=== PATIENT | female | born 1985 | race Caucasian/White ===

== ENCOUNTER 2016-11-13 14:07 | Inpatient (IN) | payer OTHER ==
[~2016-11-13] VITALS: Ht 172.7 cm; Wt 82.7 kg
[2017-01-21] VITALS (41 sets, daily range): BP systolic 103–138; BP diastolic 59–84; PULSE 72–157; TEMP 97.7–98.8
[2017-01-21] MEDS ORDERED: PRENATAL MVI (01:27)
[2017-01-21 04:13] LABS: BASO # 0.1 (0.0-0.2); BASO % 0.3 % (0.0-2.0); EOS % 0.2 % (0-4.0); GRAN % 78.2 % (42.2-75.2); HEMATOCRIT 41.8 % (37.0-47.0); HEMOGLOBIN 14.5 g/dl (12.5-16.0); LYMPH # 2.5 (1.2-3.4); LYMPH % 13.9 % (20.0-51.0); MEAN CELL VOLUME 87 fl (80.0-100.0); MEAN CORPUSCULAR HEMOGLOBIN 30 pg (27.0-31.0); MEAN CORPUSCULAR HGB CONC 35 g/dl (33.0-37.0); MEAN PLATELET VOLUME 11.4 fl (7.4-10.4); MONO # 1.2 (0.1-0.6); MONO % 6.7 % (1.7-9.3); PLATELET COUNT 217 K/mm3 (130-400); RED BLOOD COUNT 4.79 M/mm3 (4.10-5.30); REDCELL DISTRIBUTION WIDTH-CV 12.6 % (11.5-14.5)
[2017-01-21] MEDS ORDERED: MOTRIN 800800 MG/TAB PO (09:39)
[2017-01-21] MEDS ORDERED: PERCOCET 325 MG1 TA2 PO (09:39)
[2017-01-22] VITALS (7 sets, daily range): BP systolic 98–116; BP diastolic 57–78; PULSE 76–135; TEMP 97.9–103.1
[2017-01-22 07:59] LABS: MEAN CELL VOLUME 89 fl (80.0-100.0); MEAN CORPUSCULAR HGB CONC 34 g/dl (33.0-37.0); MEAN PLATELET VOLUME 10.7 fl (7.4-10.4); PLATELET COUNT 174 K/mm3 (130-400); RED BLOOD COUNT 3.49 M/mm3 (4.10-5.30); REDCELL DISTRIBUTION WIDTH-CV 13.2 % (11.5-14.5)
[2017-01-22 08:02] LABS: HEMOGLOBIN 10.5 g/dl (12.5-16.0); MEAN CORPUSCULAR HEMOGLOBIN 30 pg (27.0-31.0); WHITE BLOOD COUNT 23.6 K/mm3 (4.8-10.8)
[2017-01-22 08:03] LABS: ADD PATHOLOGY DIFF REVIEW NO
[2017-01-22 08:38] LABS: BAND 16 % (0-10); NEUTROPHILS 71 % (42.0-75.2); PLATELET ESTIMATE NORMAL (NORMAL); TOTAL CELLS COUNTED 100
[2017-01-22 09:32] LABS: PH 6 (5-8); SQUAMOUS EPITHELIAL 0-2 /hpf; URINE APPEARANCE Hazy; URINE BACTERIA Rare /hpf; URINE BILIRUBIN Negative (NEGATIVE); URINE BLOOD 3+ (NEGATIVE); URINE COLOR Yellow; URINE GLUCOSE Negative (NEGATIVE); URINE KETONE Negative (NEGATIVE); URINE UROBILINOGEN Negative (NEGATIVE); URINE WBC 20-50 /hpf
[2017-01-23 01:00] VITALS: BP 116/68; PULSE 88; TEMP 98
[2017-01-23 05:00] VITALS: TEMP 97.7
[2017-01-23 08:04] VITALS: BP 115/65; PULSE 82; TEMP 98.2
[2017-01-23 08:35] LABS: BASO # 0.1 (0.0-0.2); BASO % 0.3 % (0.0-2.0); EOS % 0.2 % (0-4.0); GRAN # 18.8 (1.4-6.5); GRAN % 83.7 % (42.2-75.2); LYMPH # 1.9 (1.2-3.4); LYMPH % 8.5 % (20.0-51.0); MEAN CELL VOLUME 91 fl (80.0-100.0); MEAN CORPUSCULAR HGB CONC 33 g/dl (33.0-37.0); MEAN PLATELET VOLUME 10.2 fl (7.4-10.4); MONO # 1.4 (0.1-0.6); MONO % 6.4 % (1.7-9.3); PLATELET COUNT 164 K/mm3 (130-400); RED BLOOD COUNT 3.41 M/mm3 (4.10-5.30); REDCELL DISTRIBUTION WIDTH-CV 13.3 % (11.5-14.5)
[2017-01-23 08:37] LABS: HEMATOCRIT 31.1 % (37.0-47.0); HEMOGLOBIN 10.3 g/dl (12.5-16.0); MEAN CORPUSCULAR HEMOGLOBIN 30 pg (27.0-31.0); WHITE BLOOD COUNT 22.5 K/mm3 (4.8-10.8)
[2017-01-23] MEDS ORDERED: CEPHALEXIN500 M1 PO (10:00)
[2017-01-23 13:00] VITALS: BP 112/68; PULSE 78; TEMP 98.4
[2017-01-23 19:15] VITALS: BP 129/88; PULSE 106; TEMP 100.3
[2017-01-23 21:00] VITALS: TEMP 98.3
[2017-01-24 03:35] VITALS: TEMP 97.5; TEMP 97.8
[2017-01-24 07:32] LABS: ADD PATHOLOGY DIFF REVIEW NO
[2017-01-24 07:36] LABS: HEMATOCRIT 30.6 % (37.0-47.0); HEMOGLOBIN 10.1 g/dl (12.5-16.0); MEAN CELL VOLUME 90 fl (80.0-100.0); MEAN CORPUSCULAR HEMOGLOBIN 30 pg (27.0-31.0); MEAN CORPUSCULAR HGB CONC 33 g/dl (33.0-37.0); MEAN PLATELET VOLUME 9.6 fl (7.4-10.4); PLATELET COUNT 177 K/mm3 (130-400); RED BLOOD COUNT 3.39 M/mm3 (4.10-5.30); REDCELL DISTRIBUTION WIDTH-CV 13.2 % (11.5-14.5); WHITE BLOOD COUNT 14.6 K/mm3 (4.8-10.8)
[2017-01-24 08:05] LABS: BAND 16 % (0-10); METAMYELOCYTE 1 % (0-0); MYELOCYTE 1 % (0-0); NEUTROPHILS 57 % (42.0-75.2); TOTAL CELLS COUNTED 100
[2017-01-24 08:06] LABS: PLATELET ESTIMATE NORMAL (NORMAL)
[2017-01-24 08:12] VITALS: BP 105/77; PULSE 69; TEMP 97.6
== END 2017-01-24 13:20 | disposition home or self-care (01) | DRG 775 ==
LOC: LDR → EDSTATUS 01-12 07:02 → LDRO 01-12 14:07 → OB 01-21 01:24 → LDR 01-21 01:24 → OB 01-21 14:45
PROVIDERS: Obstetrics & Gynecology
PROC: 10E0XZZ Delivery of Products of Conception, External Approach (ICD-10-PCS; principal; 2017-01-21)
PROC: 0HQ9XZZ Repair Perineum Skin, External Approach (ICD-10-PCS; 2017-01-21)
DX: O48.0 Post-term pregnancy (principal); O86.20 Urinary tract infection following delivery, unspecified; O70.0 First degree perineal laceration during delivery; Z3A.41 41 weeks gestation of pregnancy; Z37.0 Single live birth
CPT/HCPCS: J0290; J0696; J1580; J2590; J7120

== ENCOUNTER → 2017-01-26 | Outpatient (CLI) | payer OTHER ==
[2017-01-21 01:23] VITALS: BP 124/84; PULSE 82; TEMP 97.7
[~2017-01-26] MED LIST: CEPHALEXIN500 M1 PO; MOTRIN 800800 MG/TAB PO; PERCOCET 325 MG1 TA2 PO; PRENATAL MVI
== END ==
LOC: LDRO 01-21 01:03 → LAC 12:51
DX: Z39.1 Encounter for care and examination of lactating mother (principal); Z71.89 Other specified counseling

== ENCOUNTER → 2017-01-30 | Outpatient (CLI) | payer OTHER | LOC: LAC 10:32 | DX: Z39.1 Encounter for care and examination of lactating mother (principal); Z71.89 Other specified counseling ==

== ENCOUNTER → 2017-03-05 | Outpatient (CLI) | payer OTHER | LOC: COL.CARD 09:29 | DX: R00.2 Palpitations (principal) ==

== ENCOUNTER 2019-08-11 15:37 | Inpatient (IN) | payer BC ==
[~2019-08-11] VITALS: Ht 172.7 cm; Wt 84.1 kg
[2019-08-14] VITALS (29 sets, daily range): BP systolic 103–129; BP diastolic 58–84; PULSE 70–102; TEMP 97.7–98.1
--- NOTE | 2019-08-14 07:30 | NUR ---
Pt here for scheduled induction of labor. 40.2 weeks gestation, complicated with +GBS. Pt to [facility], explained. Consents signed. IV started to left wrist x 1 attempt. Blood drawn from site and then LR infusing without difficulty. Pen G 5mu started IVPB. Assessment complete. 0800:Dr Luis here and at bedside. SVE: 3/70/-2, AROM and clear fluid noted. Pads changed and pt repositioned. FHR reactive, pitocin started at 2mu per order.
[2019-08-14 08:39] LABS: BASO % 0.3 % (0.0-2.0); EOS # 0.1 (0.0-0.7); EOS % 0.5 % (0-4.0); GRAN # 7.8 (1.4-6.5); GRAN % 69.4 % (42.2-75.2); HEMATOCRIT 38.4 % (37.0-47.0); LYMPH # 2.5 (1.2-3.4); LYMPH % 22.4 % (20.0-51.0); MEAN CELL VOLUME 87 fl (80.0-100.0); MEAN CORPUSCULAR HEMOGLOBIN 29 pg (27.0-31.0); MEAN CORPUSCULAR HGB CONC 34 g/dl (33.0-37.0); MEAN PLATELET VOLUME 11.1 fl (7.4-10.4); MONO # 0.7 (0.1-0.6); MONO % 6.6 % (1.7-9.3); PLATELET COUNT 214 K/mm3 (130-400); RED BLOOD COUNT 4.44 M/mm3 (4.10-5.30); REDCELL DISTRIBUTION WIDTH-CV 13.1 % (11.5-14.5)
--- NOTE | 2019-08-14 09:05 | NUR ---
Pt requesting epidural. Amarjit WATSON called and will be here soon. 0925:Pt up to bathroom, voids. Pt sitting on side of bed. Epidural placed, test dose at 0943. Pt tolerated well. See anesthesia notes.
--- NOTE | 2019-08-14 10:50 | NUR ---
Pt comfortable with epidural. SVEV: 4-5/80/-2. Faulkner catheter placed. Pericare done and pt repositioned.
--- NOTE | 2019-08-14 11:20 | NUR ---
Intermittent late decelerations noted with moderate variability. Pt repositioned to right lateral. 1135:Early/variable decels noted, SVE: 6-7/90/-1. 1153:Dr Luis called. See physician notification.
--- NOTE | 2019-08-14 12:20 | NUR ---
Pt calls out and is feeling pressure. SVE: /-1. Pericare done and pt repositioned to left lateral. 1241:SVE: complete +1. Dr Luis called, on her way for delivery. 1246:Dr Luis here. Pt prepped for delivery. Pt starts to push and pushes for 6 minutes. 1256: of infants head and shoulders. Cord clamped and cut and in care of Vivek SIMON 1257:Spontaneous delivery of placenta.LR with pitocin infusing at 333ml/hr. 2nd degree lac repaired by physician. Fundus firm, bleeding WNL. Pericare done and new pads and ice pack in place.
[2019-08-14] MEDS ORDERED: MOTRIN 800800 MG/TAB PO (14:15)
[2019-08-15 01:15] VITALS: BP 110/70; PULSE 75; TEMP 98.3
[2019-08-15 04:20] VITALS: BP 98/62; PULSE 86; TEMP 97.6
[2019-08-15 08:45] VITALS: BP 104/68; PULSE 85; TEMP 97.8
[2019-08-15 13:35] VITALS: BP 110/64; PULSE 82; TEMP 98.2
== END 2019-08-15 14:55 | disposition home or self-care (01) | DRG 807 ==
LOC: LDR 15:37 → OB 08-14 16:03
PROVIDERS: ADMIT Obstetrics & Gynecology
PROC: 10E0XZZ Delivery of Products of Conception, External Approach (ICD-10-PCS; principal; 2019-08-14)
PROC: 0KQM0ZZ Repair Perineum Muscle, Open Approach (ICD-10-PCS; 2019-08-14)
PROC: 10907ZC Drainage of Amniotic Fluid, Therapeutic from Products of Conception, Via Natural or Artificial Opening (ICD-10-PCS; 2019-08-14)
PROC: 3E033VJ Introduction of Other Hormone into Peripheral Vein, Percutaneous Approach (ICD-10-PCS; 2019-08-14)
DX: O48.0 Post-term pregnancy (principal); Z37.0 Single live birth; O99.824 Streptococcus B carrier state complicating childbirth; O70.1 Second degree perineal laceration during delivery; Z3A.40 40 weeks gestation of pregnancy
CPT/HCPCS: J2540; J2590; J7120